=== PATIENT | female | born 1940 | race African-American/Black ===

== ENCOUNTER 2020-10-06 21:06 | Emergency (ER) | payer MEDICARE ==
--- NOTE | 2020-10-06 22:19 | Emergency Department Report ---
ED Neuro Deficit HPI - General Chief Complaint: Neuro Symptoms/Deficit Stated Complaint: POSS STROKE SX Time Seen by Provider: 10/06/20 22:02 Source: patient Mode of arrival: Ambulatory Limitations: No Limitations - History of Present Illness Initial Comments: Patient is an 80-year-old female who presents emergency room with left-sided facial numbness and left-sided headache. Patient states her headache was severe. Patient states facial numbness is severe. Patient states it started 4 hours ago and has since resolved. Problems walking or with her limbs. Patient difficulty seeing or visual changes. Patient denies nausea vomiting. Patient denies chest pain or shortness of breath. Patient denies recent travel. Patient denies recent international travel. Patient denies exposure to the novel coronavirus. Patient denies sick contacts. Patient denies fever and chills. Patient denies cough. Patient denies diarrhea. Patient denies coming in contact with anybody with symptoms of the novel coronavirus. -: Sudden Presenting Symptoms: Present: Sudden, Severe Headache History of same: No Place: home Severity: severe Quality: improving Improves With: time, rest Worsens With: none On Anticoagulants: No Context: sudden onset Associated Symptoms: headaches. denies: confusion, chest pain, cough, diaphoresis, fever/chills, loss of appetite, malise, nausea/vomiting, vertigo, seizures, shortness of breath, syncope, weakness Treatments Prior to Arrival: none - Related Data Home Medications: Home Medications Medication Instructions Recorded Confirmed Last Taken Aspirin EC [Ecotrin] 325 mg PO QDAY 07/04/14 07/04/14 07/04/14 09:00 325 MG Atorvastatin 20 mg PO QHS 07/04/14 07/04/14 07/04/14 22:00 20 MG Clopidogrel [Plavix] 75 mg PO QDAY 07/04/14 07/04/14 07/04/14 09:00 75 MG Previous Rx's Medication Instructions Recorded Last Taken Type Butalb/Acetamin/Caff 50-325-40 1 tab PO Q6HR PRN #60 tablet 07/15/14 Unknown Rx [Fioricet 50-325-40] Famotidine [Pepcid] 20 mg PO BID #60 tablet 07/15/14 Unknown Rx hydroCHLOROthiazide [HCTZ] 12.5 mg PO QDAY #30 capsule 07/15/14 Unknown Rx traMADoL [Ultram 50 MG tab] 50 mg PO Q6H PRN #30 tablet 07/15/14 Unknown Rx Allergies/Adverse Reactions: Allergies Allergy/AdvReac Type Severity Reaction Status Date / Time Sulfa (Sulfonamide Allergy Unknown Verified 07/04/14 20:55 Antibiotics) ED Review of Systems ROS: Stated complaint: POSS STROKE SX Other details as noted in HPI Constitutional: denies: chills, fever Eyes: denies: eye pain, eye discharge, vision change ENT: denies: ear pain, throat pain Respiratory: denies: cough, shortness of breath, wheezing Cardiovascular: denies: chest pain, palpitations Endocrine: no symptoms reported Gastrointestinal: denies: abdominal pain, nausea, diarrhea Genitourinary: denies: urgency, dysuria, discharge Musculoskeletal: denies: back pain, joint swelling, arthralgia Skin: denies: rash, lesions Neurological: as per HPI, headache, numbness. denies: weakness, paresthesias Psychiatric: denies: anxiety, depression Hematological/Lymphatic: denies: easy bleeding, easy bruising ED Past Medical Hx - Past Medical History Previous Medical History?: Yes Hx Hypertension: Yes - Surgical History Past Surgical History?: No - Family History Family history: no significant - Social History Smoking Status: Never Smoker Substance Use Type: None - Medications Home Medications: Home Medications Medication Instructions Recorded Confirmed Last Taken Type Aspirin EC [Ecotrin] 325 mg PO QDAY 07/04/14 07/04/14 07/04/14 09:00 History 325 MG Atorvastatin 20 mg PO QHS 07/04/14 07/04/14 07/04/14 22:00 History 20 MG Clopidogrel [Plavix] 75 mg PO QDAY 07/04/14 07/04/14 07/04/14 09:00 History 75 MG Butalb/Acetamin/Caff 50-325-40 1 tab PO Q6HR PRN #60 tablet 07/15/14 Unknown Rx [Fioricet 50-325-40] Famotidine [Pepcid] 20 mg PO BID #60 tablet 07/15/14 Unknown Rx hydroCHLOROthiazide [HCTZ] 12.5 mg PO QDAY #30 capsule 07/15/14 Unknown Rx traMADoL [Ultram 50 MG tab] 50 mg PO Q6H PRN #30 tablet 07/15/14 Unknown Rx ED Neuro Physical Exam - General Limitations: No Limitations General appearance: alert, in no apparent distress Suspected Stroke: Yes - Head Head exam: Present: atraumatic, normocephalic - Eye Eye exam: Present: normal appearance - ENT ENT exam: Present: mucous membranes moist - Neck Neck exam: Present: normal inspection - Respiratory Respiratory exam: Present: normal lung sounds bilaterally. Absent: respiratory distress - Cardiovascular Cardiovascular Exam: Present: regular rate, normal rhythm. Absent: systolic murmur, diastolic murmur, rubs, gallop - GI/Abdominal GI/Abdominal exam: Present: soft, normal bowel sounds - Rectal Rectal exam: Present: deferred - Extremities Exam Extremities exam: Present: normal inspection - Back Exam Back exam: Present: normal inspection - Neurological Exam Neurological exam: Present: alert, oriented X3 - NIHSS Assessment Interval: Baseline 1a. Level of Consciousness: alert/keenly responsive 1b. LOC Questions: answers both correctly 1c. LOC Commands: performs tasks correctly 2. Best Gaze: normal 3. Visual: no visual loss 4. Facial Palsy: normal symmetrical movement 5b. Motor Arm Right: no drift 5a. Motor Arm Left: no drift 6a. Motor Leg Left: no drift 6b. Motor Leg Right: no drift 7. Limb Ataxia: absent 8. Sensory: normal 9. Best Language: no aphasia 10. Dysarthria: normal 11. Extinction/Inattention: no abnormality Total Score: 0 Stroke Severity: No Stroke Symptoms - Psychiatric Psychiatric exam: Present: normal affect, normal mood - Skin Skin exam: Present: warm, dry, intact, normal color. Absent: rash ED Course Vital Signs 10/06/20 21:18 Temperature 98.1 F Pulse Rate 74 Respiratory 18 Rate Blood Pressure 155/85 O2 Sat by Pulse 96 Oximetry - Reevaluation(s) Reevaluation #1: I discussed all results with patient. I discussed plan of care with patient. Patient refused to be admitted. Patient wishes not to be admitted. Patient to go home. I discussed the risk with patient. Patient voiced understanding of the risk. Patient signed AMA form. Patient voiced understanding of AMA form. Patient is of sound mind and body. Even though the patient is leaving his medical advice, a formal discharge will be given to patient.. 10/06/20 23:49 - Consultations Consultation #1: I discussed the case with Dr. Flores, neurology. Dr. Flores recommends admission and work-up for TIA versus stroke with an complete stroke work-up as an inpatient. 10/06/20 22:28 - Lab Data Result diagrams: 10/06/20 22:40 Lab Results 10/06/20 10/06/20 10/06/20 Range/Units 22:03 22:40 22:40 WBC 8.3 (4.5-11.0) K/mm3 RBC 5.03 (3.65-5.03) M/mm3 Hgb 15.0 H (10.1-14.3) gm/dl Hct 45.0 H (30.3-42.9) % MCV 89 (79-97) fl MCH 30 (28-32) pg MCHC 33 (30-34) % RDW 13.0 L (13.2-15.2) % Plt Count 209 (140-440) K/mm3 Lymph % (Auto) 24.6 (13.4-35.0) % Victoria % (Auto) 9.5 H (0.0-7.3) % Eos % (Auto) 1.9 (0.0-4.3) % Baso % (Auto) 1.0 (0.0-1.8) % Lymph # (Auto) 2.0 (1.2-5.4) K/mm3 Victoria # (Auto) 0.8 (0.0-0.8) K/mm3 Eos # (Auto) 0.2 (0.0-0.4) K/mm3 Baso # (Auto) 0.1 (0.0-0.1) K/mm3 Seg Neutrophils % 63.0 (40.0-70.0) % Seg Neutrophils # 5.2 (1.8-7.7) K/mm3 PT 12.0 L (12.2-14.9) Sec. INR 0.83 L (0.87-1.13) APTT 27.9 (24.2-36.6) Sec. Thrombin Time (15.1-19.6) Sec. POC Glucose 104 (70-105) mg/dL 10/06/20 Range/Units 22:40 WBC (4.5-11.0) K/mm3 RBC (3.65-5.03) M/mm3 Hgb (10.1-14.3) gm/dl Hct (30.3-42.9) % MCV (79-97) fl MCH (28-32) pg MCHC (30-34) % RDW (13.2-15.2) % Plt Count (140-440) K/mm3 Lymph % (Auto) (13.4-35.0) % Victoria % (Auto) (0.0-7.3) % Eos % (Auto) (0.0-4.3) % Baso % (Auto) (0.0-1.8) % Lymph # (Auto) (1.2-5.4) K/mm3 Victoria # (Auto) (0.0-0.8) K/mm3 Eos # (Auto) (0.0-0.4) K/mm3 Baso # (Auto) (0.0-0.1) K/mm3 Seg Neutrophils % (40.0-70.0) % Seg Neutrophils # (1.8-7.7) K/mm3 PT (12.2-14.9) Sec. INR (0.87-1.13) APTT (24.2-36.6) Sec. Thrombin Time 17.1 (15.1-19.6) Sec. POC Glucose (70-105) mg/dL - EKG Data -: EKG Interpreted by Ct EKG shows normal: sinus rhythm, axis, intervals, QRS complexes, ST-T waves Rate: normal - Radiology Data Radiology results: report reviewed CT head/brain wo con INDICATION / CLINICAL INFORMATION: 80 years Female; neuro deficits <6hrs or sx present upon awakening. TECHNIQUE: Routine CT head without contrast. All CT scans at this location are performed using CT dose reduction for ALARA by means of automated exposure control. COMPARISON: None. FINDINGS: BRAIN / INTRACRANIAL CONTENTS: No acute hemorrhage, mass effect, midline shift, hydrocephalus, or acute, large territorial infarct. Mild, diffuse cerebral and cerebellar atrophy. No significant white matter abnormality seen. CRANIOCERVICAL JUNCTION: No significant abnormality. ORBITS: No significant abnormality of visualized orbits. SINUSES / MASTOIDS: Visualized paranasal sinuses and mastoid air cells are essentially clear. ADDITIONAL FINDINGS: None. IMPRESSION: 1. No focal mass, hemorrhage, hydrocephalus, or acute, large territorial infarct. - Medical Decision Making Patient is an 80-year-old female that presents emergency room with complaints of facial numbness and headache. Prior to initial evaluation, the patient was resolved symptoms. Patient had a code stroke initiated. Neurology saw the patient. Patient had immediate head CT which was negative for acute findings. Neurology recommended admission for further stroke work-up and TIA work-up. Patient had labs done which were essentially markable except for renal insufficiency. I discussed admission with patient and patient refused. Patient signed AMA form. Patient left hospital AGAINST MEDICAL ADVICE. I discussed all results and risk with patient. Patient voiced understanding of risk and still signed out AMA. Patient given discharge the patient left AGAINST MEDICAL ADVICE. Critical care time documented due to the multiple reassessments, prolonged time at the bedside, interpretation of diagnostics and labs and discussion with consultants. - Differential Diagnosis TIA, stroke, headache, facial numbness, Critical Care Time: Yes Critical care time in (mins) excluding proc time.: 35 Critical care attestation.: If time is entered above; I have spent that time in minutes in the direct care of this critically ill patient, excluding procedure time. Critical Care Time: 35 minutes ED Disposition Clinical Impression: Facial numbness, TIA (transient ischemic attack) Headache Qualifiers: Headache type: unspecified Headache chronicity pattern: acute headache Intractability: not intractable Qualified Code(s): R51.9 - Headache, unspecified Disposition: DC-07 LEFT AGAINST MED ADVICE Is pt being admited?: No Does the pt Need Aspirin: No Condition: Stable Instructions: Transient Ischemic Attack, [id number], Paresthesia, [id number] Additional Instructions: Patient to follow-up with primary care in 2 to 3 days. Patient to follow-up with neurology in 2 to 3 days. Patient to take an 81 mg aspirin daily. Patient to rest. Patient to increase water. Patient to avoid strenuous exercise or heavy lifting until cleared by neurology and primary care. Patient to take Tylenol or ibuprofen as needed for pain. Patient to continue all medications. Patient to return to the ER if condition worsens, changes or new symptoms arise. [facility] Care [facility] - 2-3 Days LOGAN HALL MD [Staff Physician] - 2-3 Days Time of Disposition: 23:56
--- NOTE | 2020-10-06 22:26 | Cat Scan Report ---
CT head/brain wo con INDICATION / CLINICAL INFORMATION: 80 years Female; neuro deficits <6hrs or sx present upon awakening. TECHNIQUE: Routine CT head without contrast. All CT scans at this location are performed using CT dos e reduction for ALARA by means of automated exposure control. COMPARISON: None. FINDINGS: BRAIN / INTRACRANIAL CONTENTS: No acute hemorrhage, mass effect, midline shift, hydrocephalus, or acu te, large territorial infarct. Mild, diffuse cerebral and cerebellar atrophy. No significant white ma tter abnormality seen. CRANIOCERVICAL JUNCTION: No significant abnormality. ORBITS: No significant abnormality of visualized orbits. SINUSES / MASTOIDS: Visualized paranasal sinuses and mastoid air cells are essentially clear. ADDITIONAL FINDINGS: None. IMPRESSION: 1. No focal mass, hemorrhage, hydrocephalus, or acute, large territorial infarct. Signer Name: Reid Velásquez MD, III Signed: 10/06/2020 10:21 PM Workstation Name: [id number]
--- NOTE | 2020-10-06 22:26 | Consultation ---
Medications and Allergies Allergies Allergy/AdvReac Type Severity Reaction Status Date / Time Sulfa (Sulfonamide Allergy Unknown Verified 07/04/14 20:55 Antibiotics) Home Medications Medication Instructions Recorded Confirmed Last Taken Type Aspirin EC [Ecotrin] 325 mg PO QDAY 07/04/14 07/04/14 07/04/14 09:00 History 325 MG Atorvastatin 20 mg PO QHS 07/04/14 07/04/14 07/04/14 22:00 History 20 MG Clopidogrel [Plavix] 75 mg PO QDAY 07/04/14 07/04/14 07/04/14 09:00 History 75 MG Butalb/Acetamin/Caff 50-325-40 1 tab PO Q6HR PRN #60 tablet 07/15/14 Unknown Rx [Fioricet 50-325-40] Famotidine [Pepcid] 20 mg PO BID #60 tablet 07/15/14 Unknown Rx hydroCHLOROthiazide [HCTZ] 12.5 mg PO QDAY #30 capsule 07/15/14 Unknown Rx traMADoL [Ultram 50 MG tab] 50 mg PO Q6H PRN #30 tablet 07/15/14 Unknown Rx Physical Examination - Vital Signs Vital Signs: Vital Signs Temp Pulse Resp BP Pulse Ox 98.1 F 74 18 155/85 96 10/06/20 21:18 10/06/20 21:18 10/06/20 21:18 10/06/20 21:18 10/06/20 21:18 Assessment and Plan [facility] Consult Note # Demographics Consult Type: Acute Stroke Level 2 (4.5-24 hrs) Patient Location: Emergency Room First Name: Leighann Last Name: Julien Date of : 1940 Age: 80 Gender: Female Time of Initial Page ( Time): 10/06/2020, 22:16 Time of Return Call ( Time): 10/06/2020, 22:16 # HPI History: 80F says she developed a headache and some tingling on her face, onset about 16:00 today. She has had similar in the past. This one seemed a little more persistent, came to ED. # Scores Time of exam and NIHSS ( Time): 10/06/2020, 22:19 Level of Consciousness 1a: [0] = Alert; keenly responsive LOC Questions 1b: [0] = Answers both questions correctly LOC Commands 1c: [0] = Performs both tasks correctly Best Gaze 2: [0] = Normal Visual 3: [0] = No visual loss Facial Palsy 4: [0] = Normal symmetrical movements Motor Arm Left 5a: [0] = No drift Motor Arm Right 5b: [0] = No drift Motor Leg Left 6a: [0] = No drift Motor Leg Right 6b: [0] = No drift Limb Ataxia 7: [0] = Absent Sensory 8: [0] = Normal Best Language 9: [0] = No aphasia Dysarthria 10: [0] = Normal Extinction and Inattention 11: [0] = No abnormality NIHSS Total: 0 # Assessment Impression: Migraine (Complex) most likely given similar prior and no residual. # Plan Thrombolytic/Intervention: NOT IV Thrombolytic or IA Intervention Thrombolytic Exclusion (< 3 hour window): non-disabling deficit Intraarterial Exclusion: non-disabling Other: I have discussed my recommendations with the referring provider Additional Recommendations: Outpatient neurology follow up for prevention strategies. Disposition: discharge # Logistics Telemedicine: Interactive 2 way audio and visual telecommunication technology was utilized during this visit
[2020-10-06 22:54] LABS: Basophils # (Auto) 0.1 K/mm3 (0.0-0.1); Eosinophils # (Auto) 0.2 K/mm3 (0.0-0.4); Eosinophils % (Auto) 1.9 % (0.0-4.3); Lymphocytes % (Auto) 24.6 % (13.4-35.0); Mean Corpuscular HGB Conc 33 % (30-34); Mean Corpuscular Volume 89 fl (79-97); Monocytes # (Auto) 0.8 K/mm3 (0.0-0.8); Monocytes % (Auto) 9.5 % (0.0-7.3); Platelet Count 209 K/mm3 (140-440); Red Blood Count 5.03 M/mm3 (3.65-5.03)
[2020-10-06 23:12] LABS: INR 0.83 (0.87-1.13); Partial Thromboplastin Time 27.9 Sec. (24.2-36.6)
[2020-10-06 23:17] LABS: Albumin 4.1 g/dL (3.9-5); Calcium 9.1 mg/dL (8.4-10.2)
[2020-10-07 06:45] VITALS: BP 168/88
--- NOTE | 2020-10-08 13:13 | Electrocardiograph Report ---
[facility] Test Date: 2020-10-06 Test Time: 21:56:43 Pat Name: MARK WADE Department: Room: Gender: F Assembly Leader: : 1940 Requested By: BAILEY WAGONER III Order Number: [id number] Reading MD: Yves Martini Measurements Intervals [place] Rate: 68 P: 77 VA: 140 QRS: 55 QRSD: 95 T: 73 QT: 390 QTc: 416 Interpretive Statements Sinus rhythm ST elevation, consider early repolarization No previous ECG available for comparison Electronically Signed On 10-08-2020 13:13:38 EDT by Yves Martini
== END 2020-10-06 23:16 | disposition left against medical advice (07) ==
LOC: ED 21:06
DX: G45.9 Transient cerebral ischemic attack, unspecified (principal); R51.9 Headache, unspecified; R20.0 Anesthesia of skin; I10 Essential (primary) hypertension; Z79.899 Other long term (current) drug therapy; Z88.2 Allergy status to sulfonamides
CPT/HCPCS: 36415; 70450; 80053; 82962; 84484; 85025; 85610; 85670; 85730; 93005